=== PATIENT | male | born 1990 | race Caucasian/White ===

== ENCOUNTER 2018-07-05 10:26 | Outpatient (CLI) | payer BC, SELFPAY ==
--- NOTE | 2018-07-05 10:24 | DI.RAD_ITS ---
SYMPTOMS/DIAGNOSIS: F/U PREVIOUS FRACTURE LEFT WRIST: Two views were obtained. No previous films are available for comparison. No acute fracture identified. There is a mild ulnar minus variance. 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 RIGHT WRIST: Two views were obtained. The carpal alignment appears within normal limits. No fracture is seen on this limited series.
== END 2018-07-05 10:46 ==
PROVIDERS: PCP Internal Medicine; Visit Provider Physician Assistant
DX: M25.832 Other specified joint disorders, left wrist (principal); Z87.81 Personal history of (healed) traumatic fracture
CPT/HCPCS: 73100

== ENCOUNTER 2024-05-09 13:24 | Outpatient (REF) | payer BC, SELFPAY | END 2024-05-09 13:25 | disposition home or self-care (01) | LOC: LBN 13:24 | PROVIDERS: PCP Internal Medicine; Visit Provider Nurse Practitioner Family | DX: L98.9 Disorder of the skin and subcutaneous tissue, unspecified (principal); L73.8 Other specified follicular disorders | CPT/HCPCS: 87070; 87205 ==

== ENCOUNTER 2024-12-26 15:30 | Outpatient (REF) | payer BC, SELFPAY | END 2024-12-26 15:31 | disposition home or self-care (01) | LOC: NCHCN 15:30 | PROVIDERS: PCP Nurse Practitioner Family; Visit Provider Physician Assistant | DX: J02.9 Acute pharyngitis, unspecified (principal) | CPT/HCPCS: 87070 ==